=== PATIENT | male | born 1995 | race Caucasian/White ===

== ENCOUNTER 2021-01-04 17:09 | Emergency (ER) | payer OTHER, SELFPAY ==
[2021-01-04 17:21] VITALS: BP 119/68; PULSE 78; RESP 16; TEMP 36.6; O2SAT 100
--- NOTE | 2021-01-04 17:47 | ED.GENADULT ---
HPI - General Adult General Chief complaint: Unspecified Stated complaint: Hole in throat Time Seen by Provider: 01/04/21 17:40 Source: patient and RN notes reviewed Mode of arrival: ambulatory Limitations: no limitations History of Present Illness HPI narrative: 25-year-old male who presents to [facility] with complaints with complaints of holes in throat. Patient states that he noticed this white areas on his tonsils and then they came out and he has holes in the tonsils where they were. Patient states that his throat is mildly sore when he swallows, some rhinitis and sinus congestion, denies any fevers chills. or sweats.Patient states that he has history of seasonal allergies and asthma, taking Zyrtec daily. Location: mouth Related Data Home Medications Medication Instructions Recorded Confirmed No Home Medications 01/04/21 01/04/21 Allergies Allergy/AdvReac Type Severity Reaction Status Date / Time No Known Allergies Allergy Unknown Verified 07/23/19 19:19 Review of Systems Review of Systems: Narrative: CONSTITUTIONAL: Denies fever, chills, or sweats. EYES: Denies visual changes, redness, or discharge. ENT: Positive rhinorrhea, congestion, sore throat, no otalgia. CARDIOVASCULAR: Denies chest pain, palpitations, or edema. RESPIRATORY: Denies cough or dyspnea. GASTROINTESTINAL: Denies abdominal pain, nausea, vomiting, or diarrhea. GENITOURINARY: Denies dysuria or hematuria. SKIN: Denies rash or itching. MUSCULOSKELETAL: Denies back pain, joint pain, or myalgia. NEUROLOGIC: Denies headache, numbness, or weakness. PSYCHIATRIC:Positive history of anxiety or depression. All systems reviewed & are unremarkable except as noted in HPI and below PMFSH Past Medical History Medical History (Updated 01/09/21 @ 16:15 by Corrine Noriega NP) Anxiety Not on medication Asthma Right knee dislocation Seasonal allergies Surgical History Surgical History No history of previous surgery Family History Family History (Updated 01/09/21 @ 16:14 by Corrine Noriega NP) Other No significant family history Social History Social History (Updated 01/09/21 @ 16:13 by Corrine Noriega NP) Smoking packs per day: 0.5 Smoking cigarettes per day: 10.0 Years smoked: 7 Smoking pack-years: 3.50 Smoking status: Current every day smoker Tobacco type: cigarettes Alcohol intake: current Alcohol use details: rare Substance use: never Living arrangements: with family Gender identity (if verbalized by the patient): Male Comments At time of signature, agree with nursing past medical, surgical, social and family history. There is no relevant family history pertinent to the presenting complaint Exam Narrative: Exam Narrative: GENERAL: Well-appearing, well-nourished, and in no acute distress. HEAD: Normocephalic, atraumatic. EYES: PERRLA and EOMI. ENT: Nares clear with clear rhinorrhea no epistaxis. Mucous membranes moist.TM's normal with good light reflex, NECK: Supple.no lymphadenopathyTonsil stones noted in right tonsil with site where previous stone had been leaving indentation, no enlargement of tonsils or exudates, minimal redness of tonsils noted CHEST: Clear to auscultation. No respiratory distress.SAO2 100% on room air HEART: Regular rate and rhythm. No murmur heard. Normal peripheral pulses. ABDOMEN: Soft, nontender, nondistended, normal active bowel sounds. EXTREMITIES: Normal range of motion. No edema. SKIN: Warm, dry, no rash. NEURO: No focal deficits. Alert and oriented x3. Course Vital Signs Vital signs: Vital Signs Temperature 36.6 C 01/04/21 17:21 Pulse Rate 78 01/04/21 17:21 Respiratory Rate 16 01/04/21 17:21 Blood Pressure 119/68 01/04/21 17:21 Pulse Oximetry 100 01/04/21 17:21 Temperature 36.6 C 01/04/21 17:21 Pulse Rate 78 01/04/21 17:21 Respiratory Rate 16 01/04/21 17:21 Blood Pressure 1
== END 2021-01-04 18:12 | disposition home or self-care (01) ==
PROVIDERS: Emergency Provider Registered Nurse; PCP Physician Assistant
DX: J35.8 Other chronic diseases of tonsils and adenoids (principal); F17.210 Nicotine dependence, cigarettes, uncomplicated
CPT/HCPCS: 99211; G0463

== ENCOUNTER 2023-07-23 13:59 | Emergency (ER) | payer OTHER, SELFPAY ==
--- NOTE | ~2023-07-23 | XR_ITS ---
XR abdomen/kub 1V DATE: 07/23/2023 15:26 INDICATION: Suprapubic pressure, dysuria. TECHNIQUE: 2 supine AP views of the abdomen and pelvis COMPARISON: None FINDINGS: The included lower lung najera are clear. Heart size is normal. The psoas shadows are intact. No visceromegaly is evident. No urinary tract calcification is noted. No bowel obstruction is detected. Included skeletal structures are unremarkable. IMPRESSION: Negative Reviewed, dictated and finalized at [facility]. Reviewed, dictated and finalized at [facility]. 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
[2023-07-23 14:13] VITALS: BP 107/67; PULSE 70; RESP 16; TEMP 36.6; O2SAT 100
--- NOTE | 2023-07-23 15:13 | ED.MALEGU ---
HPI - Male Genitourinary General Chief complaint: Urogenital-Male Stated complaint: urinary issue Time Seen by Provider: 07/23/23 15:02 Source: patient and RN notes reviewed Mode of arrival: ambulatory Limitations: no limitations History of Present Illness HPI Narrative: Patient presents today complaining of intermittent dysuria since last night with some suprapubic pressure. Denies urinary frequency, hematuria, testicular pain, penile discharge. He denies concerns for sexually transmitted infections as well. No history of kidney stones. No recent back or flank pain. Related Data Home Medications Medication Instructions Recorded Confirmed No Home Medications 01/04/21 01/04/21 Allergies Allergy/AdvReac Type Severity Reaction Status Date / Time No Known Allergies Allergy Unknown Verified 07/23/19 19:19 Review of Systems Review of Systems: CONSTITUTIONAL: Denies body aches, fever, chills, or sweats. EYES: Denies visual changes, redness, or discharge. ENT: Denies rhinorrhea, congestion, sore throat, or otalgia. CARDIOVASCULAR: Denies chest pain, palpitations, or edema. RESPIRATORY: Denies cough or dyspnea. GASTROINTESTINAL: Denies abdominal pain, nausea, vomiting, or diarrhea. GENITOURINARY: Denies hematuria.+ dysuria, suprapubic pressure SKIN: Denies rash, itching, or wounds. MUSCULOSKELETAL: Denies back pain, joint pain, or myalgia. NEUROLOGIC: Denies headache, numbness, tingling, or weakness. PSYCH: Denies depression or anxiety. [facility] Past Medical History Medical History Anxiety Not on medication Asthma Right knee dislocation Seasonal allergies Surgical History Surgical History No history of previous surgery Family History Family History Other No significant family history Social History Social History Smoking packs per day: 0.5 Smoking cigarettes per day: 10.0 Years smoked: 7 Smoking pack-years: 3.50 Smoking status: Current every day smoker Tobacco type: cigarettes Alcohol intake: current Alcohol use details: rare Substance use: never Living arrangements: with family Gender identity (if verbalized by the patient): Male Comments At time of signature, I have reviewed and agree with nursing past medical, surgical, social and family history unless otherwise noted. Please see nursing chart for further information. There is no relevant family history pertinent to the presenting complaint Exam Narrative: GENERAL: Well-appearing, well-nourished, and in no acute distress. HEAD: Normocephalic, atraumatic. EYES: EOMI. No redness or drainage. Conjunctivae normal. ENT: Mucous membranes pink and moist. NECK: Normal AROM. CHEST: No respiratory distress. Clear to auscultation. HEART: Regular rate and rhythm. No murmur appreciated. Normal peripheral pulses. ABDOMEN: Soft, nontender, nondistended, normal active bowel sounds. EXTREMITIES: Normal range of motion. No edema. SKIN: Warm, dry, no rash. Capillary refill normal. Normal skin turgor. NEURO: No focal deficits. Alert and oriented x3. Gait steady. PSYCH: Normal affect. No signs of depression or anxiety. Course Course Level of Care: Express Care Visit Vital Signs Vital signs: Vital Signs Temperature 97.9 F 07/23/23 14:13 Pulse Rate 70 07/23/23 14:13 Respiratory Rate 16 07/23/23 14:13 Blood Pressure 107/67 07/23/23 14:13 Pulse Oximetry 100 07/23/23 14:13 Oxygen Delivery Room Air 07/23/23 14:13 Temperature 97.9 F 07/23/23 14:13 Pulse Rate 70 07/23/23 14:13 Respiratory Rate 16 07/23/23 14:13 Blood Pressure 107/67 07/23/23 14:13 Pulse Oximetry 100 07/23/23 14:13 Oxygen Delivery Room Air 07/23/23 14:13 Kath M
== END 2023-07-23 15:56 | disposition home or self-care (01) ==
PROVIDERS: Emergency Provider Nurse Practitioner; PCP Physician Assistant
DX: R30.0 Dysuria (principal); F17.210 Nicotine dependence, cigarettes, uncomplicated; J45.909 Unspecified asthma, uncomplicated
CPT/HCPCS: 74018; 81003; 87086; 99213; G0463

== ENCOUNTER 2023-10-16 09:08 | Emergency (ER) | payer OTHER, SELFPAY ==
[2023-10-16 09:25] VITALS: BP 114/73; PULSE 73; RESP 16; TEMP 37; O2SAT 100
--- NOTE | 2023-10-16 09:50 | ED.URI ---
HPI - URI/Sore Throat General Chief Complaint: Upper Respiratory Infection Stated Complaint: throat pain Time Seen by Provider: 10/16/23 09:50 Source: patient, RN notes reviewed and old records reviewed Mode of arrival: ambulatory Limitations: no limitations History of Present Illness HPI Narrative: 28-year-old male presents to the [facility] with complaints of a sore throat that started Sunday, 2 days ago. Has been taking ibuprofen. As well as DayQuil and NyQuil. Denies any other symptoms Treatments prior to arrival: ibuprofen and cold medicine Related Data Home Medications Medication Instructions Recorded Confirmed No Home Medications 01/04/21 10/16/23 Allergies Allergy/AdvReac Type Severity Reaction Status Date / Time No Known Allergies Allergy Unknown Verified 10/16/23 10:01 Review of Systems Review of Systems: All systems reviewed & are unremarkable except as noted in HPI and below Constitutional: Constitutional: Reports no additional constitutional complaints Eyes: Eyes: Reports no additional eye complaints ENT: Reports as per HPI and Reports sore throat Cardiovascular: Cardiovascular: Reports no additional cardiovascular complaints, Denies chest pain and Denies dyspnea Respiratory: Respiratory: Reports no additional respiratory complaints, Denies chest congestion, Denies cough and Denies dyspnea Gastrointestinal: Gastrointestinal: Reports no additional gastrointestinal complaints, Denies abdominal pain, Denies nausea and Denies vomiting Musculoskeletal: Musculoskeletal: Reports no additional musculoskeletal complaints Integumentary/Breasts: Skin/Breast: Reports system reviewed and no additional complaints, except as docu Neurologic: Reports system reviewed and no additional complaints, except as documented Psychiatric: Psychiatric: Reports no additional psychiatric complaints Allergic/Immunologic: Allergic/Immunologic: Reports no additional allergic/immunologic complaints [facility] Past Medical History Medical History Anxiety Not on medication Asthma Right knee dislocation Seasonal allergies Surgical History Surgical History No history of previous surgery Family History Family History Other No significant family history Social History Social History Smoking packs per day: 0.5 Smoking cigarettes per day: 10.0 Years smoked: 7 Smoking pack-years: 3.50 Smoking status: Current every day smoker Tobacco type: cigarettes Alcohol intake: current Alcohol use details: rare Substance use: never Living arrangements: with family Gender identity (if verbalized by the patient): Male Comments At the time of my signature, I reviewed and agree with the nursing past medical, surgical, social, and family history. There is no relevant family history pertinent to the patient complaint. Exam Const: General: cooperative, healthy appearing, comfortable, no acute distress, well developed, alert and well nourished Nutritional Appearance: well nourished Orientation/consciousness: patient oriented x3 Limitations: no limitations HENMT: Head: normal to inspection Ears: hearing grossly normal bilaterally, external ears normal, TM's normal bilaterally, EAC's normal, mastoids normal and no periauricular adenopathy Face/Nose/Sinus: Normal external nose present, Normal nares present, Normal nasal mucous membranes and turbinates present, normal facial exam and face symmetric Face and sinus: normal facial exam and face symmetric Mouth: Yes Normal oral and palatal mucosa present, Yes lip normal and Yes moist mucous membranes Throat: tonsils normal, uvula midline, posterior oropharynx abnormal erythema; no cobblstoning, no edema, no exudates, no lacerations and no foreign body and
== END 2023-10-16 10:12 | disposition home or self-care (01) ==
PROVIDERS: Emergency Provider Nurse Practitioner; PCP Physician Assistant
DX: U07.1 COVID-19 (principal); F17.210 Nicotine dependence, cigarettes, uncomplicated
CPT/HCPCS: 87081; 87426; 87804; 87880; 99213; G0463

== ENCOUNTER 2023-11-23 19:06 | Emergency (ER) | payer OTHER, SELFPAY ==
--- NOTE | 2023-11-23 19:08 | ED.UPPEXIN ---
HPI - Extremity Injury (Upper) General Chief Complaint: Skin/Abscess/Foreign Body Stated Complaint: Left Hand Finger Pain Time Seen by Provider: 11/23/23 19:08 Source: patient Mode of arrival: ambulatory Limitations: no limitations History of Present Illness HPI narrative: Pete is a 28-year-old male patient presenting to the clinic today with complaints of index finger pain on his left hand. He reports last week he has some pus under the cuticle and now it is red and swollen. No known injury. Related Data Allergies Allergy/AdvReac Type Severity Reaction Status Date / Time No Known Allergies Allergy Unknown Verified 11/23/23 19:08 Review of Systems Review of Systems: Pertinent positives per HPI. Patient denies any fever, chills, rash, headache, visual changes, dizziness, cough, runny nose, sore throat, shortness of breath, chest pain, palpitations, nausea, vomiting, diarrhea, constipation, abdominal pain, or any urinary issues. PMFSH Past Medical History Medical History Anxiety Not on medication Asthma Right knee dislocation Seasonal allergies Surgical History Surgical History No history of previous surgery Family History Family History Other No significant family history Social History Social History Smoking packs per day: 0.5 Smoking cigarettes per day: 10.0 Years smoked: 7 Smoking pack-years: 3.50 Smoking status: Current every day smoker Tobacco type: cigarettes Alcohol intake: current Alcohol use details: rare Substance use: never Living arrangements: with family Gender identity (if verbalized by the patient): Male Comments At the time of my signature, I reviewed and agree with the nursing past medical, surgical, social, and family history. There is no relevant family history pertinent to the patient complaint. Exam Narrative: General: Well-developed, well nourished, in no apparent distress Head: Normocephalic, atraumatic. Cardio: Regular rate and rhythm, s1 and s2 normal, no murmur appreciated. Resp: Clear to auscultation bilaterally, no rhonchi, rales, wheezing or rubs. Musculoskeletal: No deformity, tenderness to palpation over the cuticle with distal redness of the left index finger, areas fluctuant, attempted to drain using an 18 gauge needle without success, grossly normal range of motion, muscle strength strong and equal, peripheral pulse strong, no edema, no cyanosis, normal gait and station Course Course Emergency Course: Portions of this record may have been created with voice recognition software. Level of Care: Express Care Visit Vital Signs Vital signs: Vital signs reviewed Procedures Abscess I/D Finger: Date of Incision: 11/23/23 Side (if applicable): left (Index finger) Technique: other (Incised with an 18 gauge needle) Amount of fluid expressed (mL): 1 Irrigation: No I&D Results: Blood Abcess I&D Additional Comments: Verbal consent was obtained for incision and drainage of a paronychia. Area was cleansed with Betadine. No obvious pus was expressed but blood was expressed. Tolerated procedure well. Triple antibiotic ointment and Band-Aid was applied Other Procedure Procedure 1: Other Procedure: Attempted incision and drainage with an 18 gauge needle. Area was cleansed with Betadine. 18 gauge needle was used to raise up the cuticle and to allow for drainage. No no drainage was expressed only blood. Triple antibiotic ointment and a Band-Aid was applied MDM - Extremity Injury (Upper) MDM Narrative Medical decision making narrative: At the time of visit patient is resting comfortably on the exam table. Patient appears to be nontoxic. Procedure: Atte
[2023-11-23 19:14] VITALS: BP 123/82; PULSE 72; RESP 16; TEMP 36.6; O2SAT 99
== END 2023-11-23 19:28 | disposition home or self-care (01) ==
PROVIDERS: Emergency Provider Nurse Practitioner Family; PCP Physician Assistant
DX: L03.012 Cellulitis of left finger (principal); F17.210 Nicotine dependence, cigarettes, uncomplicated
CPT/HCPCS: 10060; 99213; G0463

== ENCOUNTER 2023-11-25 08:19 | Emergency (ER) | payer OTHER, SELFPAY ==
[2023-11-25 08:22] VITALS: BP 133/87; PULSE 63; RESP 16; TEMP 36.4; O2SAT 100
--- NOTE | 2023-11-25 09:19 | ED.UPPEXIN ---
HPI - Extremity Injury (Upper) General Chief Complaint: Extremity Injury, Upper Stated Complaint: Swollen finger Time Seen by Provider: 11/25/23 08:23 History of Present Illness HPI narrative: Patient is a 28-year-old male who presents ER with infection to the left 2nd digit. He was seen couple days ago for possible paronychia. They were unable to drain anything using needle aspiration. He was started on doxycycline. The abscess has continued to grow. No drainage. No fevers or chills or sweats. Has pain with movement. Patient is left handed. Tetanus shot up-to-date. Related Data Allergies Allergy/AdvReac Type Severity Reaction Status Date / Time No Known Allergies Allergy Unknown Verified 11/25/23 08:30 Review of Systems Constitutional: Constitutional: Reports no additional constitutional complaints Musculoskeletal: Musculoskeletal: Denies arthralgias and Denies joint swelling Comments: Left 2nd digit finger infection Integumentary/Breasts: Skin/Breast: Reports erythema, Denies rash and Denies skin ulcer Neurologic: Denies focal weakness and Denies numbness PMFSH Past Medical History Medical History Anxiety Not on medication Asthma Right knee dislocation Seasonal allergies Surgical History Surgical History No history of previous surgery Family History Family History Other No significant family history Social History Social History Smoking packs per day: 0.5 Smoking cigarettes per day: 10.0 Years smoked: 7 Smoking pack-years: 3.50 Smoking status: Current every day smoker Tobacco type: cigarettes Alcohol intake: current Alcohol use details: rare Substance use: never Living arrangements: with family Gender identity (if verbalized by the patient): Male Exam Narrative: GENERAL: Well-appearing, well-nourished, and in no acute distress. HEAD: Normocephalic, atraumatic. EXTREMITIES: Normal range of motion. No edema. SKIN: Warm, dry, no rash. paronychia left 2nd digit. NEURO: Alert and oriented x3. PSYCH: Normal mood and affect. Course Course Emergency Course: Tolerated incision and drainage without issue. Discharge home. Patient given return precautions. Continue doxycycline. Vital Signs Vital signs: Vital Signs Temperature 97.5 F L 11/25/23 08:22 Pulse Rate 63 11/25/23 08:22 Respiratory Rate 16 11/25/23 08:22 Blood Pressure 133/87 11/25/23 08:22 Pulse Oximetry 100 11/25/23 08:22 Oxygen Delivery Room Air 11/25/23 08:22 Temperature 97.5 F L 11/25/23 08:22 Pulse Rate 63 11/25/23 08:22 Respiratory Rate 16 11/25/23 08:22 Blood Pressure 133/87 11/25/23 08:22 Pulse Oximetry 100 11/25/23 08:22 Oxygen Delivery Room Air 11/25/23 08:22 Procedures Abscess I/D index finger: Date of Incision: 11/25/23 Time of Incision: 09:15 Side (if applicable): left Local Anesthetic: lidocaine 1% and with epi Amount of anesthesia used (mL): 2 Technique: incised with #11 blade Irrigation: Yes Packing used?: none I&D Results: Pus Discharge Plan Discharge Clinical Impression: Paronychia Patient Disposition: Home, Self-Care Condition: Stable Instructions: Antibiotic Form, Paronychia (ED) Additional Instructions: Soak her finger in warm water over the next 2 days and continue to massage the area of abscess to ensure that pus continues to drain. You may apply topical antibiotic to the area as well. Continue your home oral antibiotics. Return to the ER if you have increased pain, you have worsening redness up your finger, or you have additional concerns. Prescriptions: No Action doxycycline hyclate 100 mg capsule
== END 2023-11-25 09:46 | disposition home or self-care (01) ==
PROVIDERS: Emergency Provider Emergency Medicine; PCP Physician Assistant
DX: L03.012 Cellulitis of left finger (principal); J45.909 Unspecified asthma, uncomplicated; F17.210 Nicotine dependence, cigarettes, uncomplicated
CPT/HCPCS: 26010; 99282

== ENCOUNTER 2025-07-13 08:37 | Day surgery (SDC) | payer OTHER, SELFPAY ==
[2025-05-29 14:52] VITALS: BMI 20.2
[2025-06-30 10:54] VITALS: BMI 19.5
[2025-07-13 08:51] VITALS: BP 117/71; PULSE 75; RESP 16; TEMP 37; O2SAT 100
[2025-07-13] MEDS: LACTATED RINGERS 1,000 ML 150 ML IV CONT (08:59)
--- NOTE | 2025-07-13 09:06 | WPDANESEPPF ---
Anes - Initial Pre Proc Eval Procedure: Operation Date: 07/13/25 10:15 Proposed Procedures p Diagnostic Colonoscopy - Cj Ramos MD Date/Time: 07/13/25 09:06 Surgeon: Cj Ramos MD Pre Op Diagnosis: Anal fissure, unspecified Patient Data Age: 29 Gender: M Height: 1.91 m Weight: 68.7 kg Last Vital Signs Temp 98.6 F 07/13/25 08:51 Pulse 75 07/13/25 08:51 Resp 16 07/13/25 08:51 BP 117/71 07/13/25 08:51 Pulse Ox 100 07/13/25 08:51 O2 Del Method Room Air 07/13/25 08:51 Allergies Allergy/AdvReac Type Severity Reaction Status Date / Time No Known Allergies Allergy Unknown Verified 07/13/25 08:50 Home Medications ?Medication ?Instructions ?Recorded ?Confirmed ?Type calcium carbonate (Tums) 200 mg PO TID PRN dyspepsia 06/30/25 07/13/25 History ibuprofen 200 mg tablet 200 mg PO Q6H PRN fever or pain 06/30/25 07/13/25 History lidocaine 3 %-hydrocortisone 2.5 % 1 applic RECTAL Q12H PRN 06/30/25 07/13/25 History (7 gram) rectal kit, gel and wipes hemorrhoids loratadine 10 mg tablet (Allergy 10 mg PO DAILY 06/30/25 07/13/25 History Relief (loratadine)) Patient hx anesthesia problems: none Family hx anesthesia problems: none Results Review: All pre-operative results and documents have been reviewed as part of the pre-operative evaluation. [facility] Past Medical History Medical History Right knee dislocation Asthma Seasonal allergies Anxiety Not on medication Surgical History Surgical History No history of previous surgery Family History Family History Other No significant family history Social History Social History Smoking packs per day: 0.5 Smoking cigarettes per day: 10.0 Years smoked: 7 Smoking pack-years: 3.50 Smoking status: Former smoker Tobacco type: cigarettes Alcohol intake: current Alcohol use details: rare Substance use: never Substance use type: does not use Living arrangements: with family Gender identity (if verbalized by the patient): Male Spiritual care concerns: No Anes - Eval Final PreProcedure Day of Procedure 07/13/25 09:06 Heart: regular rate and rhythm Lungs: clear to auscultation Airway: Mallampati scale class 1 Neurological: alert and oriented Last oral intake: >/= 8 hours ASA classification: II Anesthetic plan: proceed Anesthesia type and monitoring: monitored anesthesia care Results Review: All pre-operative results and documents have been reviewed as part of the pre-operative evaluation. Informed Consent: The patient's anesthetic plan and its attendant risks and benefits were discussed with the patient/family/POA. Questions were solicited and answers provided to the satisfaction of the patient/family/POA.
--- NOTE | 2025-07-13 09:21 | PM.IMHP ---
H&P: HPI History of Present Illness Date/Time: 07/13/25 09:21 Chief Complaint: Rectal bleeding Narrative: The patient has been noticing blood in stools for 6 months. Painful defecation and has been diagnosed with anal fissure. He is here for colonoscopy. Review of Systems Review of Systems: All systems reviewed & are unremarkable except as noted in HPI and below PMFSH Past Medical History Medical History Right knee dislocation Asthma Seasonal allergies Anxiety Not on medication Surgical History Surgical History No history of previous surgery Family History Family History Other No significant family history Social History Social History Smoking packs per day: 0.5 Smoking cigarettes per day: 10.0 Years smoked: 7 Smoking pack-years: 3.50 Smoking status: Former smoker Tobacco type: cigarettes Alcohol intake: current Alcohol use details: rare Substance use: never Substance use type: does not use Living arrangements: with family Gender identity (if verbalized by the patient): Male Spiritual care concerns: No Meds Home Medications and Allergies Home Medications ?Medication ?Instructions ?Recorded ?Confirmed ?Type calcium carbonate (Tums) 200 mg PO TID PRN dyspepsia 06/30/25 07/13/25 History ibuprofen 200 mg tablet 200 mg PO Q6H PRN fever or pain 06/30/25 07/13/25 History lidocaine 3 %-hydrocortisone 2.5 % 1 applic RECTAL Q12H PRN 06/30/25 07/13/25 History (7 gram) rectal kit, gel and wipes hemorrhoids loratadine 10 mg tablet (Allergy 10 mg PO DAILY 06/30/25 07/13/25 History Relief (loratadine)) Allergies Allergy/AdvReac Type Severity Reaction Status Date / Time No Known Allergies Allergy Unknown Verified 07/13/25 08:50 Vital Signs Vital Signs - 24 hr 07/13/25 08:51 Temperature 98.6 F Pulse Rate 75 Respiratory Rate 16 Blood Pressure 117/71 Pulse Oximetry 100 Oxygen Delivery Room Air Exam Const: General: cooperative and healthy appearing Resp: Effort & Inspection: normal respiratory effort and able to speak in complete sentences Auscultation: clear to auscultation bilaterally Cardio: Rate: regular rate Rhythm: regular rhythm GI: Inspection: normal to inspection GI Palp: No No hepatosplenomegaly present Auscultation: normal bowel sounds Rectal Exam: deferred Skin: General skin exam: normal color Psych: Appearance: grossly normal Mental Status: mental status grossly normal Assessment and Plan Assessment and plan (1) Rectal bleeding: Code(s): K62.5 - Hemorrhage of anus and rectum Status: Acute Assessment and Plan: The patient is deemed a good candidate for the procedure. Consent signed. Will proceed.
--- NOTE | 2025-07-13 09:34 | WPDANESPN ---
Anes - Prog Note Post-Op Date/Time: 07/13/25 09:34 Vital Signs: Last Vital Signs Temp 98.6 F 07/13/25 08:51 Pulse 75 07/13/25 08:51 Resp 16 07/13/25 08:51 BP 117/71 07/13/25 08:51 Pulse Ox 100 07/13/25 08:51 O2 Del Method Room Air 07/13/25 08:51 Pain Score (VAS): no Patient Feedback: Patient satisfied with anesthetic care.
[2025-07-13] MEDS: SIMETHICONE ORAL SUSPENSION 20 MG/0.3 ML 30 ML BOTTLE 0.6 ML IRRIGATION (09:35)
[2025-07-13 09:43] VITALS: BP 102/68; PULSE 71; RESP 18; O2SAT 100
[2025-07-13 09:53] VITALS: BP 104/76; PULSE 83; RESP 18; O2SAT 98
[2025-07-13 10:03] VITALS: BP 102/67; PULSE 71; RESP 18; O2SAT 100
== END 2025-07-13 10:06 | disposition home or self-care (01) ==
PROVIDERS: Referring Provider Nurse Practitioner; Visit Provider Internal Medicine Gastroenterology
PROC: 0DJD8ZZ Inspection of Lower Intestinal Tract, Via Natural or Artificial Opening Endoscopic (ICD-10-PCS; CPT 45378; principal; 2025-07-13 10:15)
DX: K62.5 Hemorrhage of anus and rectum (principal)
CPT/HCPCS: 45378